=== PATIENT | male | born 1975 | race Caucasian/White ===

== ENCOUNTER 2021-11-15 07:52 | Outpatient (CLI) | payer OTHER, SELFPAY ==
[2021-11-15 10:30] LABS: SARS-CoV-2 RNA PCR Negative (Negative)
== END 2021-11-15 07:53 | disposition home or self-care (01) ==
LOC: CHSLAB 07:59
PROVIDERS: Visit Provider Family Medicine
DX: Z01.818 Encounter for other preprocedural examination (principal); Z20.822 Contact with and (suspected) exposure to COVID-19
CPT/HCPCS: C9803; U0003; U0005

== ENCOUNTER 2024-10-19 10:01 | Emergency (ER) | payer MEDICARE, MEDICAID, SELFPAY ==
[2024-10-19 10:01] VITALS: BP 119/81; PULSE 75; RESP 16; TEMP 36.7; O2SAT 96
[2024-10-19 10:50] LABS: Influenza A QL RT-PCR Positive (Negative); Influenza B QL RT-PCR Negative (Negative); RSV RNA, RT-PCR Negative (Negative); SARS-CoV-2 RNA PCR Negative (Negative)
--- NOTE | 2024-10-19 10:55 | ED_ITS ---
HPI - URI/Sore Throat General Chief Complaint: Upper Respiratory Infection Stated Complaint: cold symptoms Time Seen by Provider: 10/19/24 10:03 Source: patient Mode of arrival: ambulatory Limitations: no limitations History of Present Illness HPI Narrative: this is a 41-year-old male with no significant past medical history presents with a 1 day history of cough congestion with some currently no fever or chills no shortness of breath no nausea vomiting or abdominal pain. MD elicited complaint: fever, cough, rhinorrhea and nasal congestion Consistency: constant Severity: mild Related Data Allergies Allergy/AdvReac Type Severity Reaction Status Date / Time MARIANELA Inhibitors Allergy Anaphylaxis Verified 10/19/24 10:20 Review of Systems Review of Systems: All systems reviewed & are unremarkable except as noted in HPI and below PMFSH Past Medical History Medical History Patient denies medical problems Exam Const: General: healthy appearing and no acute distress Nutritional Appearance: well nourished Orientation/consciousness: patient oriented x3 Limitations: no limitations HENMT: Head: normal to inspection Eyes: Conjunctivae: conjunctivae normal Neck: Neck: normal visual inspection Chest: Chest palpation & inspection: normal inspection of the chest Resp: Effort & Inspection: normal respiratory effort Auscultation: clear to auscultation bilaterally Cardio: Rate: regular rate Rhythm: regular rhythm GI: GI Palp: Yes Soft to palpation Auscultation: normal bowel sounds Urinary Catheter: Urinary Catheter: patent and draining Skin: General skin exam: normal color Rashes: no rashes Course Course Emergency Course: positive for influenza will send a prescription for Tamiflu to patient's local pharmacy. Vital Signs Vital signs: Vital Signs Temperature 36.7 C 10/19/24 10:01 Pulse Rate 75 10/19/24 10:01 Respiratory Rate 16 10/19/24 10:01 Blood Pressure 119/81 10/19/24 10:01 Pulse Oximetry 96 10/19/24 10:01 Oxygen Delivery Room Air 10/19/24 10:01 Temperature 36.7 C 10/19/24 10:01 Pulse Rate 75 10/19/24 10:01 Respiratory Rate 16 10/19/24 10:01 Blood Pressure 119/81 10/19/24 10:01 Pulse Oximetry 96 10/19/24 10:01 Oxygen Delivery Room Air 10/19/24 10:01 MDM - URI/Sore Throat Lab Data Labs: Lab Results 10/19/24 Range/Units 10:03 Influenza A (RT-PCR) Positive A (Negative) Influenza B (RT-PCR) Negative (Negative) RSV (RT-PCR) Negative (Negative) SARS-CoV-2 RNA (RT-PCR) Negative (Negative) Critical Care Time Critical Care Time Critical Care Time: No Discharge Plan Discharge Clinical Impression: Influenza Patient Disposition: Home, Self-Care Condition: Stable Instructions: Antibiotic Form, Influenza (ED) Additional Instructions: Take medication as prescribed and can take Tylenol or Motrin drink plenty of fluids. Patient Language: Hungarian Prescriptions: New oseltamivir [Tamiflu] 75 mg capsule 75 mg PO Q12H 5 Days Qty: 10 0RF Follow-up/Referrals: Sana Tony MD [Primary Care Provider] - Time of Disposition: 10:58
[2024-10-19 11:10] VITALS: BP 122/65; PULSE 72; RESP 17; TEMP 36.9; O2SAT 97
== END 2024-10-19 11:10 | disposition home or self-care (01) ==
PROVIDERS: Emergency Provider Emergency Medicine; PCP Family Medicine
DX: J11.1 Influenza due to unidentified influenza virus with other respiratory manifestations (principal); Z20.822 Contact with and (suspected) exposure to COVID-19
CPT/HCPCS: 87637; 99283

== ENCOUNTER 2025-03-21 15:11 | Emergency (ER) | payer OTHER, SELFPAY ==
[2025-03-21 15:12] VITALS: BP 133/83; PULSE 75; RESP 16; TEMP 36.9; O2SAT 95
[2025-03-21] MEDS: TETANUS,DIPHTHERIA,AC PERTUSSIS ADULT 0.5 ML (ADACEL) IM (16:58)
[2025-03-21 17:02] VITALS: BP 123/78; PULSE 62; RESP 18; TEMP 36.9; O2SAT 96
--- NOTE | 2025-03-21 20:38 | ED_ITS ---
HPI - Wound/Laceration General Chief Complaint: Wound/Laceration Stated Complaint: laceration to left hand thumb Time Seen by Provider: 03/21/25 15:25 Source: patient Mode of arrival: ambulatory Limitations: no limitations History of Present Illness HPI narrative: patient is a 50-year-old male with a left thumb laceration while using a knife and cutting corn this evening. Onset (ago): hour(s) ( 1) Location: other ( left thumb) Place: home Patient tetanus UTD: No Context: accidental Associated symptoms: none Treatments prior to arrival: bandage Related Data Home Medications ?Medication ?Instructions ?Recorded ?Confirmed ?Last Taken ?Type duloxetine 60 mg capsule,delayed 60 mg PO DAILY 03/21/25 Unknown History release empagliflozin 25 mg tablet 25 mg PO DAILY 03/21/25 Unknown History (Jardiance) fluticasone furoate 200 1 inh inhalation Q24H 03/21/25 Unknown History mcg-vilanterol 25 mcg/dose inhalation powder (Breo Ellipta) gabapentin 800 mg tablet 1,200 mg PO TID 03/21/25 Unknown History hydrocodone 7.5 mg-acetaminophen 1 tablet PO TID PRN pain 03/21/25 Unknown History 325 mg tablet levothyroxine 137 mcg tablet 137 mcg PO DAILY 03/21/25 Unknown History magnesium oxide 400 mg (241.3 mg 241.3 mg PO HS 03/21/25 Unknown History magnesium) tablet metformin 1,000 mg tablet 1,000 mg PO BID 03/21/25 Unknown History methocarbamol 750 mg tablet 1,500 mg PO TID 03/21/25 Unknown History omeprazole 40 mg capsule,delayed 40 mg PO BID 03/21/25 Unknown History release trazodone 150 mg tablet 450 mg PO HS 03/21/25 Unknown History Allergies Allergy/AdvReac Type Severity Reaction Status Date / Time MARIANELA Inhibitors Allergy Anaphylaxis Verified 03/21/25 15:20 Review of Systems Review of Systems: All systems reviewed & are unremarkable except as noted in HPI and below Constitutional: Constitutional: Reports no additional constitutional complaints Eyes: Eyes: Reports no additional eye complaints ENT: Reports system reviewed and no additional complaints, except as documented Cardiovascular: Cardiovascular: Reports no additional cardiovascular complaints Respiratory: Respiratory: Reports no additional respiratory complaints Gastrointestinal: Gastrointestinal: Reports no additional gastrointestinal complaints Genitourinary: Genitourinary: Reports no additional male genitourinary complaints Musculoskeletal: Musculoskeletal: Reports no additional musculoskeletal complaints Integumentary/Breasts: Skin/Breast: Reports system reviewed and no additional complaints, except as docu Neurologic: Reports system reviewed and no additional complaints, except as documented Psychiatric: Psychiatric: Reports no additional psychiatric complaints Endocrine: Endocrine: Reports no additional endocrine complaints Hematologic/Lymphatic: Hematologic/Lymphatic: Reports no additional hematologic/lymphatic complaints Allergic/Immunologic: Allergic/Immunologic: Reports no additional allergic/im munologic complaints PMFSH Past Medical History Medical History Patient denies medical problems Exam Const: General: healthy appearing Nutritional Appearance: well nourished Orientation/consciousness: patient oriented x3 Limitations: no limitations HENMT: Head: normal to inspection Ears: external ears normal Face/Nose/Sinus: Normal external nose present Eyes: Conjunctivae: conjunctivae normal Pupils: Equal, round and reactive pupils present EOM: EOMs intact bilaterally Neck: Neck: normal visual inspection Chest: Chest palpation & inspection: normal inspection of the chest Resp: Effort & Inspection: normal respiratory effort and not labored Auscultation: clear to auscultation bilaterally and no crackles Cardio: Rate: regular rate Rhythm: regular rhythm Heart sounds: no murmurs Skin: General skin exam: normal color Rashes: no rashes Wounds: wound no lauro and wounds noted Other: left thumb has 1.5 cm curved laceration of a flap was bleeding and no sign of infection Neuro: General: patient oriented x3, moves all extremities, no meningeal signs, no focal motor deficits and CN's II-XI intact bilaterally Extrem: General: normal to inspection Psych: Mental Status: mental status grossly normal Affect: normal affect Attitude: cooperative Course Vital Signs Vital signs: Vital Signs Temperature 36.9 C 03/21/25 15:12 Pulse Rate 75 03/21/25 15:12 Respiratory Rate 16 03/21/25 15:12 Blood Pressure 133/83 03/21/25 15:12 Pulse Oximetry 95 03/21/25 15:12 Oxygen Delivery Room Air 03/21/25 15:12 Temperature 36.9 C 03/21/25 17:02 Pulse Rate 62 03/21/25 17:02 Respiratory Rate 18 03/21/25 17:02 Blood Pressure 123/78 03/21/25 17:02 Pulse Oximetry 96 03/21/25 17:02 Oxygen Delivery Room Air 03/21/25 17:02 Procedures Other Procedure Procedure 1: Other Procedure: Left thumb laceration 1.2 cm: Area cleaned with chlorhexidine and Betadine, area anesthetized with 6 cc lidocaine, 4-0 nylon used, running sutures done times 12, patient tolerated procedure well and no complications, bandage placed with antibiotic ointment MDM - Wound/Laceration MDM Narrative Medical decision making narrative: patient is a 50-year-old male with a left thumb laceration requiring sutures. We will suture the area closed. He will get a tetanus shot. He will get antibiotics. Discharge Plan Discharge Clinical Impression: Laceration of thumb Qualifiers: Encounter type: initial encounter Damage to nail status: without damage Foreign body presence: without foreign body Laterality: unspecified laterality Qualified Code(s): S61.019A - Laceration without foreign body of unspecified thumb without damage to nail, initial encounter Patient Disposition: Home Condition: Stable Instructions: Antibiotic Form, Laceration (ED) Additional Instructions: Please have sutures removed in 8-10 days and a primary doctor follow-up at that time. Patient Language: Tanzanian Prescriptions: New cephalexin 500 mg capsule 500 mg PO TID 7 Days Qty: 21 0RF No Action levothyroxine 137 mcg tablet 137 mcg PO DAILY omeprazole 40 mg capsule,delayed release(DR/EC) 40 mg PO BID magnesium oxide 400 mg (241.3 mg magnesium) tablet 241.3 mg PO HS methocarbamol 750 mg tablet 1,500 mg PO TID gabapentin 800 mg tablet 1,200 mg PO TID hydrocodone-acetaminophen 7.5-325 mg tablet 1 tablet PO TID PRN (Reason: pain) trazodone 150 mg tablet 450 mg PO HS metformin 1,000 mg tablet 1,000 mg PO BID duloxetine 60 mg capsule,delayed release(DR/EC) 60 mg PO DAILY Jardiance 25 mg tablet 25 mg PO DAILY fluticasone furoate-vilanterol [Breo Ellipta] 200-25 mcg/dose blister with device 1 inh INHALATION Q24H Follow-up/Referrals: Sana Tony MD [Primary Care Provider] - Time of Disposition: 16:53
== END 2025-03-21 17:09 | disposition home or self-care (01) ==
PROVIDERS: Emergency Provider Emergency Medicine; PCP Family Medicine
DX: S61.012A Laceration without foreign body of left thumb without damage to nail, initial encounter (principal); Z79.891 Long term (current) use of opiate analgesic; Z79.84 Long term (current) use of oral hypoglycemic drugs; Z23 Encounter for immunization; W26.0XXA Contact with knife, initial encounter
CPT/HCPCS: 12001; 90471; 90715; 99282